=== PATIENT | male | born 1940 | race Hispanic/Latino ===

== ENCOUNTER 2016-12-26 13:31 | Emergency (ER) ==
--- NOTE | 2016-12-26 14:02 | PROVIDER DOCUMENTATION ---
Addendum entered and electronically signed by Joanna Escalante Scribe 12/26/16 17:28: EKG Interpretation - EKG Time of EKG reading by physician:: 17:20 EKG Read and Signed by:: Patrick Barlow EKG Interpretation (*Must complete 3 of following elements*): Abnormal Rate: 69 Rhythm: sinus [place]: left QRS: normal NM Interval: normal ST Wave: normal Original Note: HPI-Musculoskeletal Pain/Inj - GENERAL Source: patient, family - HX OF PRESENT ILLNESS-MUSKULOSKELTAL Severity in ED: moderate Onset/Duration: abrupt, just prior to arrival Timing: still present Modifying Factors: improves with: lying down Any recent injury?: Yes (fell out of bed while lying down, landed on face) Locality of Occurance: Home Similar Symptoms Previously?: Yes (Son reports a similar fall ~1 year ago) Recently seen or treated by another doctor?: No - FALL INJURY Location of Pain/Injury: reports: face (4 cm irregular lac on forehead; contusion on R cheek) Reason for Fall: reports: unknown (Pt states his bed is "too high." Pt's son reports that he has fallen out of bed before but that they do not know exactly what causes it.) Loss of Consciousness: no loss of consciousness Injury Associated Symptoms: reports: denies symptoms <Joanna Escalante - Last Filed: 12/26/16 16:48> <Patrick Barlow - Last Filed: 12/26/16 17:12> - GENERAL Chief Complaint: Head Injury Stated Complaint: FALL/HEAD INJURY Time Seen by Provider: 12/26/16 13:47 - HX OF PRESENT ILLNESS-MUSKULOSKELTAL Nature of Presenting Problem: 76 yo M presents to ED with cc of 4 cm irregular laceration on forehead and contusion on R cheek from fall out of bed onto carpet while lying down. Pt reports he fell out of the bed because it is too high. Pt's son reports that this is an ongoing issue and that he has lowered the bed to as low as possible ( to approximately 18" off the floor). Pt denies any neck pain. Pt reports some mild abdominal pain. Pt and his son deny any hx of dementia or neurological disorders. Pt denies diabetes, cardiac hx, and psychiatric issues. Upon arrival to ED, pt is alert and oriented x 3, smiling and congenial with staff, and in no apparent distress. Pt is hard of hearing. His laceration was continuing to bleed. (Joanna Escalante) Review of Systems - Adult - REVIEW OF SYSTEMS - ADULT Constitutional: reports: no symptoms reported. denies: chills, fever Eyes: reports: no symptoms reported. denies: blurred vision, double vision Ears, Nose, Mouth & Throat: reports: no symptoms reported. denies: ear pain, tinnitus Cardiovascular: reports: no symptoms reported. denies: irregular heart rate, palpitations Respiratory: reports: no symptoms reported. denies: cough, shortness of breath Gastrointestinal: reports: no symptoms reported. denies: abdominal pain, nausea Genitourinary: reports: no symptoms reported. denies: dysuria, flank pain Musculoskeletal: reports: no symptoms reported. denies: bone pain, muscle aches Integumentary: reports: no symptoms reported. denies: hives, itching Neurological: reports: loss of balance (Pt has tendency to fall and fell out of bed from lying down today). denies: dizziness/vertigo Psychiatric: reports: no symptoms reported Endocrine: reports: no symptoms reported. denies: cold intolerance, heat intolerance Hematologic/Lymphatic: reports: no symptoms reported. denies: blood clots, low blood count Allergic/Immunologic: reports: no symptoms reported All Other Systems: Reviewed and Negative <Joanna Escalante - Last Filed: 12/26/16 16:48> Past History - Adult - PAST MEDICAL HISTORY-ADULT Review of Records: reports: Old Records Reviewed, Nursing Assessment Review, Medications Reviewed Major Childhood Illnesses: reports: denies history Cardiovascular: reports: denies history Respiratory: reports: denies history Gastrointestinal: reports: denies history Genitourinary: reports: denies history Musculoskeletal: reports: arthritis Neurological: reports: denies history Psychiatric: reports: denies history Endocrine/Immune: reports: denies history Other Conditions: reports: denies history - IMMUNIZATION STATUS Childhood Immunizations: See Nurse Assessment Flu Vaccine: See Nurse Assessment <Joanna Escalante - Last Filed: 12/26/16 16:48> Physical Exam-Injury Related - Physical Exam-Injury Related Initial Vital Signs Reviewed: Yes General Appearance: appears well, alert, no apparent distress Eyes: PERRL/EOMI, pink conjunctivae Head, Ears, Nose, Mouth & Throat: other (4 cm irregular laceration on forehead; contusion on R cheek) Neck: non-tender, full range of motion, supple Respiratory: no respiratory distress, no accessory muscle use Cardiovascular: normal peripheral pulses, regular rate, rhythm Abdominal Exam: normal bowel sounds, non tender, soft, no organomegaly, no pulsatile mass Lymphatic: no adenopathy Back Exam: normal inspection, no CVA tenderness, no vertebral tenderness Extremity: normal range of motion, non-tender, normal gait Integumentary: swelling (R cheek), tenderness (R cheek, forehead), contusion(s) (R cheek), laceration (4 cm irregular on forehead) Neurologic: grossly normal, no motor/sensory deficits Psych/Mental Status: normal mood/affect, normal thought content, normal thought process, oriented x 3 - Glascow Coma Score Best Eye Response (Kassie): (4) open spontaneously Best Verbal Response (Kassie): (5) oriented Best Motor Response (Many): (6) obeys commands Kassie Total: 15 <Joanna Escalante - Last Filed: 12/26/16 16:48> Progress - XRAY 1 XRAY Study: Chest Impression: Abnormal (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 Lino, radiology)) XRAY Interpretation: NAD - CT/MRI 1 CT Study: Facial Bones Impression: Abnormal (forehead laceration) CT Results: No fractures (per Dr. Lino, radiology) 2 CT Study: Head Impression: Normal CT Results: NAD <Joanna Escalante - Last Filed: 12/26/16 16:48> Procedures - LACERATION/WOUND REPAIR/FB Face Wound Location: Other: Forehead, central Wound's Depth, Shape: superficial, irregular (mostly linear but somewhat irregular) Wound Explored/Foreign Body: clean Irrigated with Saline?: Yes Prepped with: Kit Utilized Anesthetic: Lidocaine/Xylocaine Volume of Anesthetic (ml's): 4 Wound Debrided: minimal Wound Repaired with: Sutures Suture Size/Type: 5.0, Nylon Number of Sutures: 10 (simple) Layer Closure?: No <Joanna Escalante - Last Filed: 12/26/16 16:48> Departure <Joanna Escalante - Last Filed: 12/26/16 16:48> - Departure Time of Disposition Order: 16:52 Certified Medical Emergency: Emergent <Patrick Barlow - Last Filed: 12/26/16 17:12> - Departure DIAGNOSIS: Facial laceration Qualifiers: Encounter type: initial encounter Qualified Code(s): S01.81XA - Laceration without foreign body of other part of head, initial encounter Head injury Qualifiers: Encounter type: initial encounter Qualified Code(s): S09.90XA - Unspecified injury of head, initial encounter Disposition: HOME 01 Condition: Stable Additional Instructions: Return to ER immediately if start to have confusion, cannot walk straight, nausea, vomiting, or unequal pupils. Follow up with regular MD tomorrow. ' Referrals: Tomazs Munson MD [Primary Care Provider] - Attestation - Scribe Verification/Attestation Scribe:: Joanna Escalante Acting as Scribe for:: Patrick Barlow Scribe documention review:: This chart was documented by a scribe and accurately reflects the service the provider performed and the decisions made by the provider. - Physician/ SULTA[place] Attestation Patient care was provided by Advanced Practice Provider:: No <Joanna Escalante - Last Filed: 12/26/16 16:48> Physician Attestation
--- NOTE | 2016-12-26 14:42 | Diag Imaging Result Document ---
PROCEDURE NAME: FACIAL BONES W/O CONTRAST - 12/26/2016 CT FACIAL BONES: COMPARISON: Head CT, 02/14/2014. FINDINGS: There is soft tissue swelling with laceration at the forehead. No radiodense foreign body. No underlying fractures. There has been previous right mastoidectomy which is stable from prior. The paranasal sinuses are clear. There is a tympanostomy tube on the left side, which is also stable from the prior exam and in good position. IMPRESSION: Forehead scalp laceration. No fractures.
--- NOTE | 2016-12-26 14:45 | Diag Imaging Result Document ---
PROCEDURE NAME: CHEST-2 VIEWS - 12/26/2016 CHEST X-RAY 2 VIEWS: COMPARISON: None. FINDINGS: There are numerous rib deformities at the right lateral chest wall compatible with old healed rib fractures. 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 There is probably some interstitial pulmonary fibrosis or scarring in the lung bases. No acute-appearing infiltrates. Heart size is normal. There are a couple of compression fractures in the upper thoracic spine, at about T3 and T4. There is about 40-50% loss of height at these levels. IMPRESSION: 1. Asbestos exposure. 2. Mild pulmonary fibrosis. 3. No acute injury to the chest.
[2016-12-26] MEDS ORDERED: XYLOCAINE-MPF 1% 5 ML ONE (14:56)
[2016-12-26 15:42] LABS: URINE SOURCE CLEAN CATCH
[2016-12-26 15:49] LABS: BILIRUBIN URINE NEGATIVE (NEGATIVE); BLOOD URINE 1+ (NEGATIVE); CLARITY CLEAR (CLEAR); COLOR YELLOW; GLUCOSE URINE NEGATIVE (NEGATIVE); LEUKOCYTES URINE TRACE (NEGATIVE); NITRITE URINE NEGATIVE (NEGATIVE); PH URINE 6.5; PROTEIN URINE 1+(30 mg/dL) mg/dL (NEGATIVE); UROBILINOGEN URINE 1+(1 mg/dL)
[2016-12-26 16:06] LABS: URINE CULTURE PL NEEDED? YES; URINE EPITHELIAL CELLS <10 /HPF (<10); URINE RBC <10 /HPF (<10); URINE WBC <10 /HPF (<10)
[2016-12-26 16:07] LABS: URINE CRYSTAL CA OXALATE PRESENT /HPF
--- NOTE | 2016-12-26 17:04 | Diag Imaging Result Document ---
PROCEDURE NAME: HEAD/C-SPINE W/O CONTRAST - 12/26/[address]: COMPARISON: 02/14/2014. FINDINGS: There is a right forehead soft-tissue contusion. No skull fractures. No intracranial mass or hemorrhage. Stable mild atrophy. Stable white matter hypodensity in the right frontal lobe, most likely chronic microvascular disease. IMPRESSION: Forehead scalp contusion. No intracranial injury. CT CERVICAL SPINE: COMPARISON: FINDINGS: There is exaggeration of the normal lordosis. No fracture or subluxation. There is severe multilevel degenerative disk disease. IMPRESSION: Degenerative disk disease. No acute injury.
[2016-12-26 17:18] VITALS: BP 122/74
--- NOTE | 2016-12-26 18:29 | EKG Report ---
Test Performed on : 12/26/2016 5:20:45 PM Test Reason : CP Blood Pressure : / mmHG Vent. Rate : 069 BPM Atrial Rate : 069 BPM P-R Int : 128 ms QRS Dur : 084 ms QT Int : 414 ms P-R-T Axes : 030 -36 034 degrees QTc Int : 443 ms Normal sinus rhythm. Left axis deviation Abnormal ECG No previous ECGs available Unconfirmed Result
== END 2016-12-26 17:28 | disposition home or self-care (01) ==
LOC: P.ED 13:31
DX: S01.81XA Laceration without foreign body of other part of head, initial encounter (principal); S00.83XA Contusion of other part of head, initial encounter; R94.31 Abnormal electrocardiogram [ECG] [EKG]; R10.9 Unspecified abdominal pain; R22.0 Localized swelling, mass and lump, head; R51 Headache; R42 Dizziness and giddiness; M19.90 Unspecified osteoarthritis, unspecified site; W06.XXXA Fall from bed, initial encounter
CPT/HCPCS: 70450; 70486; 71020; 72125; 81001; 87088; 93005